=== PATIENT | male | born 1960 | race Caucasian/White ===

== ENCOUNTER → 2018-12-20 | Outpatient (CLI) | payer OTHER ==
--- NOTE | 2018-12-20 12:46 | KCIC ---
EXAM: Lumbar spine, 3 views. HISTORY: Pain. COMPARISON: None. FINDINGS: 3 views of the lumbar spine are obtained. There is grade 1 anterolisthesis of L5 on S1. There is minimal retrolisthesis of L3 on L4. There is degenerative endplate remodeling at all levels. There is facet arthropathy predominantly at L4-L5 and L5-S1. IMPRESSION: 1. Multilevel degenerative change, primarily at the lower lumbar levels. 2. Grade 1 anterolisthesis of L5 on S1. Electronically signed by: Faith Matos MD (12/20/2018 12:43 PM) [place] [id number]
== END | disposition home or self-care (01) ==
LOC: KCIC 09:07
PROVIDERS: ATTEND Family Medicine
DX: M47.816 Spondylosis without myelopathy or radiculopathy, lumbar region (principal); M43.17 Spondylolisthesis, lumbosacral region; M12.88 Other specific arthropathies, not elsewhere classified, other specified site
CPT/HCPCS: 72100

== ENCOUNTER → 2019-01-02 | Outpatient (CLI) | payer OTHER ==
--- NOTE | 2019-01-02 09:05 | KCIC ---
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 Findings: 2 views of the orbits are submitted. No metallic foreign body is identified in the region of orbits. Impression: 1. No metallic foreign body is identified in the region of orbits. Electronically signed by: Jd Elkins MD (01/02/2019 9:02 AM) [email or web address]
--- NOTE | 2019-01-02 10:02 | KCIC ---
MRI Lumbar Spine without contrast History: Lumbar radiculopathy, felt a pop while bending over 2 weeks ago, low back pain Technique: Multiplanar, multi sequential noncontrast MR imaging was performed of the lumbar spine. Comparison: None Findings: Lumbar vertebral body stature is overall preserved. There is superior right S1 endplate deformity likely old as not associated with focal marrow edema. There are small hemangiomas of L2 and L3, also likely at T12. There is very minimal grade 1 anterior spondylolisthesis L5-S1. 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 There is negligible posterior subluxation L3 relative to L4 and L1 relative to L2. There is amorphous edema of the right L5 pedicle extending to the facet articular processes also extending to the posterior aspect of S1. There is also minimal amorphous edema of the left L5-S1 facet articulation. Conus terminates at L1. There is mild degenerative disc disease L3-4 and L4-5, mild disc desiccation L1-2. L1-L2: There is negligible disc osteophyte complex. Spinal canal and neural foramina are adequate. L2-L3: There is mild prominence of posterior epidural fat, mild buckling of the ligamentum flavum, mild facet hypertrophic change. There is negligible disc osteophyte complex indenting the ventral thecal sac in the far left lateral recess without significant spinal stenosis. Neural foramina are overall adequate. L3-L4: There are posterior and anterior annular tears. There is negligible disc osteophyte complex. There is mild prominence of posterior epidural fat centrally and mild facet degenerative change and buckling of the ligament flavum. There is minimal attenuation of the thecal sac primarily from posteriorly by epidural lipomatosis. Neural foramina are overall adequate. L4-L5: There is mild facet hypertrophic change and buckling of the ligamentum flavum. There is minimal disc osteophyte complex. There is [id number] narrowing of the far left lateral recess with degree of contact of the descending left L5 nerve root, narrowing primarily from posteriorly by ligamentum flavum and facet. There is mild to moderate left and mild right neural foramina compromise by disc osteophyte complex and facet hypertrophic change. L5-S1: There is moderate to severe facet degenerative change bilaterally. There is mild prominence of epidural fat in the recesses bilaterally, preserved central subarachnoid space, no displacement of the descending S1 nerve roots. There is [id number] neural foramina compromise bilaterally due to spondylolisthesis in combination with facet degenerative change. Impression: 1. There is minimal grade 1 anterior spondylolisthesis at L5-S1 at which there is facet degenerative change, also suspected right L5 spondylolysis. There is nonspecific edema of the right L5 pedicle extending to the facet articular processes and also mild amorphous edema of the left L5-S1 facet articulation which may be reactive in etiology. 2. There is mild degenerative disc disease greatest L3-4 and L4-5. 3. There is mild to moderate narrowing of the left lateral recess at L4-5 with degree of contact of the descending left L5 nerve root. 4. There is mild to moderate neural foramina compromise bilaterally at L5-S1 and on the left at L4-5. Electronically signed by: Jd Elkins MD (01/02/2019 9:59 AM) [email or web address]
== END | disposition home or self-care (01) ==
LOC: KCIC MRI 08:37
PROVIDERS: ATTEND Family Medicine
DX: Z01.00 Encounter for examination of eyes and vision without abnormal findings (principal); M51.16 Intervertebral disc disorders with radiculopathy, lumbar region; M47.26 Other spondylosis with radiculopathy, lumbar region; M47.817 Spondylosis without myelopathy or radiculopathy, lumbosacral region; M48.061 Spinal stenosis, lumbar region without neurogenic claudication; M43.17 Spondylolisthesis, lumbosacral region; D18.09 Hemangioma of other sites; M25.78 Osteophyte, vertebrae; M89.38 Hypertrophy of bone, other site
CPT/HCPCS: 70030; 72148

== ENCOUNTER → 2019-02-12 | Outpatient (CLI) | payer OTHER ==
[~2019-02-12] MED LIST: IOHEXOL 180 MG/ML 10 ML VIAL. IT ONE; LIDOCAINE WITH 8.4% SOD BICARB 3 ML DISP.SYRIN. INJ ONE
[2019-02-12 10:40] VITALS: BP 104/56
[2019-02-12 11:35] VITALS: BP 110/68
--- NOTE | 2019-02-12 11:36 | RAD ---
Lumbar myelogram, 02/12/2019: HISTORY: Back and leg pain Under local anesthesia, aseptic conditions and fluoroscopic guidance a lumbar puncture was performed at the mid L2 level utilizing a 25-gauge Kassie spinal needle. Good clear CSF flow was obtained following which 12 cc of Omnipaque 180 was injected into the thecal sac. The spinal needle was then removed and hemostasis obtained. Appropriate digital imaging of the lumbar region was then performed. 16 fluoroscopic spot images were recorded. 2 minutes of fluoroscopy time was utilized. The patient tolerated the procedure well and was sent to CT in good condition. The following findings were delineated on the myelogram: 1. There are mild anterior extradural defects throughout the lumbar spine. There is generalized narrowing of the thecal sac throughout the mid and lower lumbar spine. 2. In the upright position there is slight anterolisthesis at L5-S1 which does not change appreciably with flexion and extension. 3. There is poor opacification of the nerve root sleeves bilaterally in the lower lumbar spine, particularly on the right at L4 and bilaterally at L5 and S1. CT of the lumbar spine-post myelogram, 02/12/2019: Multidetector CT imaging was performed with multiplanar reconstructions produced. Following findings are delineated: 1. There is slight posterior annular bulging at L1-2 and L2-3. At L2-3 the thecal sac measures 9-10 mm in AP diameter. The neural foramina are well maintained. 2. At L3-4 there are mild degenerative changes involving the facet joints with posterior ligamentous thickening. There is moderate posterior disc bulging. The thecal sac measures 7-8 mm in AP diameter at the midline. There is only mild inferior foraminal narrowing. 3. At L4-5 there are more extensive degenerative changes involving the facet joints with moderate posterior ligamentous thickening. There is moderate posterior disc bulging. The thecal sac narrows down to an AP diameter of approximately 7 mm at the midline. The facet spurring is causing moderate bilateral foraminal narrowing. 4. At L5-S1 there are severe degenerative changes involving the facet joints with vacuum phenomena bilaterally. There is approximately 3 mm of anterolisthesis at L5-S1 in the supine position. There is a vacuum disc phenomena with moderate posterior disc bulging. There is moderate central spinal stenosis in a triangular configuration at this level, as well as moderate bilateral foraminal narrowing. IMPRESSION: 1. Moderate multilevel degenerative change as described above. 2. Mild anterolisthesis at L5-S1 due to extensive facet joint arthropathy resulting in moderate central spinal and bilateral foraminal stenosis. 3. Moderate central spinal stenosis and bilateral foraminal narrowing at L4-5 due to a combination of facet joint arthropathy and moderate posterior disc bulging. PQRS Compliance Statement: One or more of the following individualized dose reduction techniques were utilized for this examination: 1. Automated exposure control 2. Adjustment of the mA and/or kV according to patient size 3. Use of iterative reconstruction technique
--- NOTE | 2019-02-12 11:39 | NUR ---
Patient came in outpatient for myelogram. Vitals stable, no signs or symptoms of distress. Patient and educated on post myelogram care and medications to hold; both and patient verbalized understanding. Patient ambulated out of facility with and niece at side without issues.
== END | disposition home or self-care (01) ==
LOC: RAD 08:52
PROVIDERS: ATTEND Neurological Surgery
DX: M48.07 Spinal stenosis, lumbosacral region (principal); M47.817 Spondylosis without myelopathy or radiculopathy, lumbosacral region; M12.88 Other specific arthropathies, not elsewhere classified, other specified site; M51.87 Other intervertebral disc disorders, lumbosacral region; M43.16 Spondylolisthesis, lumbar region; I10 Essential (primary) hypertension; F17.200 Nicotine dependence, unspecified, uncomplicated; Z79.01 Long term (current) use of anticoagulants; Z86.73 Personal history of transient ischemic attack (TIA), and cerebral infarction without residual deficits
CPT/HCPCS: 72132; 72265; Q9965

== ENCOUNTER → 2019-03-31 | Outpatient (CLI) | payer OTHER ==
[2019-02-12 11:35] VITALS: BP 110/68
[~2019-03-31] MED LIST changes: +ASPI81TA50 PO; +CRESTOR20 MG PO; +CYCL10TA2 PO; +GLIP5TAB10 PO; -IOHEXOL 180 MG/ML 10 ML VIAL. IT ONE; -LIDOCAINE WITH 8.4% SOD BICARB 3 ML DISP.SYRIN. INJ ONE; +LISI-334 PO; +METO25TA4 PO; +NITR0.4T22 SL
--- NOTE | 2019-04-01 04:13 | PAIN ---
DATE OF SERVICE: 03/31/2019 INITIAL CONSULTATION FOR PAIN CLINIC CHIEF COMPLAINT: Bilateral low back pain. HISTORY OF PRESENT ILLNESS: This is a 59-year-old male who presents with history of pain in the low back bilaterally, somewhat worse on the right than the left, but present in both sides of the low back, going on since about 11/2018. The patient reports he was working. 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 The patient reports now it is constant, sharp, stabbing, throbbing, shooting, radiating into the side of the back and into the hip at times, but generally in the low back itself, more on the right than the left. The patient reports it is aching and burning. No radiation to the lower extremities. The patient reports it awakens him from sleep at least once or twice a night. It can affect his ability to walk, but he is not using any assistive devices. The patient has been on light duty and off work for several months now with no real resolution in the pain and he has tried some stretching and strengthening exercises, therapies in the past, nothing has been decreasing the pain significantly. The patient has had some chiropractic treatment as well, but this has not helped as well either. The patient has tried some cyclobenzaprine which helps mildly, but makes him more sleepy than anything. The patient reports no loss of motor function, but significant pain with standing, walking, changing positions especially standing or bending, ____ vacuuming the floor, when bending at the waist with any activities and awakens him from sleep at least once or twice at night as noted. The patient rates his disability from 0-10, 10 being worst, is at 7 with family home responsibilities, social activity, occupation and sexual behavior, 6 with self-care and life support activities and recreational activities. PAST MEDICAL HISTORY: Significant for hypertension, type 2 diabetes, dizziness, seizures, strokes, arthritis, balance issues. PAST SURGICAL HISTORY: Previous surgery includes left ear surgery, ear tubes, right total knee replacement in 2013, and previous tonsillectomy as well. CURRENT MEDICATIONS: Include daily baby aspirin, lisinopril, metoprolol, nitroglycerin, cyclobenzaprine, rosuvastatin, and ____ 5 mg daily. ALLERGIES: The patient has no known drug allergies. FAMILY HISTORY: Significant for heart disease. SOCIAL HISTORY: The patient does not drink alcohol. Does not use any illegal, illicit, or recreational drugs. Does smoke about half pack a day, has for many years. 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 REVIEW OF SYSTEMS: The patient's review of systems is positive for those items mentioned in history of present illness. All systems reviewed and otherwise negative. It is complete, full and well documented on the patient's chart. PHYSICAL EXAMINATION: VITAL SIGNS: The patient's blood pressure 124/86, pulse 64, respirations 16, temperature is 98.9 degrees Fahrenheit. Height is 5 feet 10 inches. Weight is 255 pounds. GENERAL: The patient is awake, alert, oriented, appropriate, very pleasant demeanor. HEENT: Shows normocephalic, atraumatic. Extraocular movements are intact, symmetrical. Oral cavity, mucous membranes moist and pink. Dentition is intact. NECK: Shows anterior throat supple without palpable lymphadenopathy noted. Swallow reflex symmetrical. CHEST: Shows normal on inspection. Breath sounds clear to auscultation bilaterally. HEART: Shows S1, S2 clear. No murmurs auscultated. ABDOMEN: Soft, nontender, and nondistended. No palpable organomegaly is noted. No rebound or guarding demonstrated. BACK: Shows spine grossly in the midline. Slight exaggeration of thoracic kyphosis, some minor flattening of the lumbar lordotic curvature. Lumbar paraspinous muscle shows symmetrical on inspection with palpation shows some moderate tenderness diffusely bilaterally, but only diffusely without radiation. The patient has good rotational motion of the lumbar spine with some moderate tenderness with both right and left lateral rotation and worse on the right, but present bilaterally and significant pain with axial loading and extension of the lumbar spine with pain in the low back itself without radiation. This is worse on the right than the left, but present bilaterally. This is mildly present with forward flexion at 45 degrees, which he performs fully, but also mildly present with forward flexion. EXTREMITIES: The patient's lower extremities show deep tendon reflexes at 1+ in the patellar and tendo calcaneus tendons. Motor exam is strong with 5/5 dorsiflexion, extension, quadriceps and hamstring flexion equal. Peripheral pulses are 1+ posterior tibia. No peripheral edema is noted bilaterally. The patient's straight leg raise noted to be negative for reproduction of any radicular symptoms bilaterally. Gaenslen's and Bertrand's maneuvers are negative bilaterally as well. Peripheral pulses are 1+ posterior tibia. No peripheral edema is noted bilaterally. SKIN: The patient's skin shows warm and dry, good turgor. No edema, sores, rashes or bruising throughout. NEUROLOGIC: The patient is able to stand, stand on his toes without difficulty or loss of balance, walks with a normal appearing gait for short distance in the office today, not using any assistive devices such as canes or crutches to ambulate. DIAGNOSTIC STUDIES: The patient's diagnostic information, had lumbar myelogram performed 02/12/2019, showing moderate multilevel degenerative change with mild anterolisthesis L5-S1 due to extensive facet joint arthropathy, resulting in moderate central spinal and bilateral foraminal stenosis, moderate central spinal stenosis and bilateral foraminal narrowing at L4-L5 due to combination of facet joint arthropathy and moderate posterior disk bulging. IMPRESSION: 1. This is a 59-year-old male with several-month history of pain in the low back after an injury while working. 2. Lumbar myelogram as noted. 3. Hypertension. 4. Diabetes. 5. Obesity. 6. Arthritis. PLAN: Options were discussed with the patient including conservative medical managements, physical therapies, and interventional techniques and he would like to pursue interventional techniques. We discussed bilateral L4-L5 and L5-S1 facet joint injections, as the patient has significant pain with axial loading of the lumbar spine consistent with facetogenic pain. He would like to proceed with this. We discussed this with anatomical models and risks were discussed as well. The patient awaits for preauthorization with insurance provider. In the meantime, we will continue with therapy and stretching exercises. He is doing on his own. We will try Medrol Dosepak. The patient was given instruction, as well as side effects to be aware of with the medication and will follow up in approximately 1 week, plan on bilateral L4-L5 and L5-S1 facet joint injections at that time. LINO CHAU MD DR: CAREMN/ledy JOB#: [id number] / [id number] ELIO Raza MD
== END | disposition home or self-care (01) ==
LOC: PNCL 08:34
PROVIDERS: ATTEND Anesthesiology
DX: M48.061 Spinal stenosis, lumbar region without neurogenic claudication (principal); M96.1 Postlaminectomy syndrome, not elsewhere classified; I10 Essential (primary) hypertension; E11.9 Type 2 diabetes mellitus without complications; E66.9 Obesity, unspecified; M19.90 Unspecified osteoarthritis, unspecified site; Z90.89 Acquired absence of other organs; Z96.651 Presence of right artificial knee joint; Z79.82 Long term (current) use of aspirin; Z79.891 Long term (current) use of opiate analgesic; Z79.899 Other long term (current) drug therapy; Z86.73 Personal history of transient ischemic attack (TIA), and cerebral infarction without residual deficits
CPT/HCPCS: G0463

== ENCOUNTER → 2019-04-17 | Outpatient (CLI) | payer OTHER ==
[2019-02-12 11:35] VITALS: BP 110/68
[~2019-04-17] MED LIST changes: +BUPIVACAINE MPF 0.25% 10 ML VIAL. ONE; +IOHEXOL 180 MG/ML 10 ML VIAL. ONE; +methylPREDNISolone ACETATE 40 MG/ML VIAL. ONE; +methylPREDNISolone ACETATE 80 MG/ML VIAL. ONE
--- NOTE | 2019-04-17 12:40 | PAIN ---
DATE OF SERVICE: 04/17/2019 PROGRESS NOTE FOR PAIN CLINIC DIAGNOSIS: Lumbar spinal stenosis with lumbar and lumbosacral spondylosis. HISTORY OF PRESENT ILLNESS: The patient is a 59-year-old male who returns for followup status post initial evaluation and preauthorization for bilateral lumbar facet joint injections. The patient has obtained this now and would like to proceed. The patient reports still significant pain in the low back, slightly worse on the right than the left, but present bilaterally. The patient reports the pain is 8 on a scale of 10 at its worst in the past week, 3 on average, 3 at its least and is a 3 today. The patient reports it is aching, sharp, dull, tight, shooting, stabbing, cramping, burning, tingling, radiating, becoming constant, severe across the low back, again worse on the right side, worse with walking, standing, changing positions, better with sitting or lying down, does not awaken him from sleep at night. Reports he cannot walk more than about 2-3 minutes without the pain, aching and hurting and has to sit down. The patient reports no new motor or sensory deficits, no new bowel or bladder incontinence or other complaints. PHYSICAL EXAMINATION: VITAL SIGNS: The patient's blood pressure 133/83, pulse 75, respirations 18, temperature 98.8 degrees Fahrenheit, height is 5 feet 10 inches, weight is 251 pounds. GENERAL: The patient is awake, alert, oriented, appropriate, very pleasant demeanor. HEENT: Shows normocephalic, atraumatic. Extraocular movements are intact and symmetrical. Oral cavity: Mucous membranes moist and pink. Dentition is intact. NECK: Shows anterior throat supple without palpable lymphadenopathy noted. Swallow reflex symmetrical. CHEST: Shows normal on inspection. Breath sounds clear bilaterally. HEART: Shows S1, S2 clear. ABDOMEN: Obese, soft, nontender, nondistended. BACK: Shows spine grossly in the midline. Normal appearing thoracic kyphosis, some minor flattening of lumbar lordotic curvature. Lumbar paraspinous muscle shows symmetrical on inspection. On palpation shows some moderate tenderness diffusely bilaterally, but only diffusely without radiation. The patient has good rotational motion of lumbar spine, both laterally as well as extension and flexion without significant difficulty, but with increased pain with extension and axial loading of the lumbar spine, again worse on the right side than the left. The patient reports no new motor or sensory deficits, no new bowel or bladder incontinence. EXTREMITIES: The patient's lower extremities show deep tendon reflexes at 1+/4 in the patellar and tendo calcaneus tendons. Motor exam is strong with 5/5 dorsiflexion, extension, quadriceps and hamstring flexion equal bilaterally. Peripheral pulses are 1+ posterior tibia. No peripheral edema is noted in the lower extremities bilaterally. Options were discussed with the patient. The patient's old chart was reviewed as his current medication regimen updated. Current review of systems updated today as well. We will proceed with bilateral L4-L5 and L5-S1 facet joint injections today with fluoroscopic guidance. Risks were again discussed including, but not limited to bleeding, infection, possibility of epidural hematoma, subsequent neurological compromise, dural puncture, headaches, spinal cord and/or nerve damage, side effects of steroid medication and poor results regarding pain control. The patient understands and wished to proceed. The patient will return to clinic in approximately 2 weeks for followup. He was counseled on return appointment, activity level and side effects to be aware of. DIAGNOSES: Lumbar spinal stenosis, lumbar and lumbosacral spondylosis. PROCEDURE: Lumbar L4-L5 and L5-S1 facet joint injections bilaterally under fluoroscopic guidance using C-arm under sterile prep and drape using local anesthetic. MEDICATION INJECTED: The patient received a total of 120 mg Depo-Medrol plus total of 4 mL of 0.25% bupivacaine and total of 2 mL of contrast. CONDITION AT DISCHARGE: Stable. The patient tolerated procedure well, had no complications. LINO CHAU MD DR: CARMEN/ledy JOB#: [id number] / [id number]
== END ==
LOC: PNCL 07:56
PROVIDERS: ATTEND Anesthesiology
DX: M47.817 Spondylosis without myelopathy or radiculopathy, lumbosacral region (principal); M48.061 Spinal stenosis, lumbar region without neurogenic claudication
CPT/HCPCS: 64493; 64494; J1030; J1040; J3490; Q9965

== ENCOUNTER → 2019-05-01 | Outpatient (CLI) | payer OTHER ==
[2019-02-12 11:35] VITALS: BP 110/68
[~2019-05-01] MED LIST changes: -BUPIVACAINE MPF 0.25% 10 ML VIAL. ONE; -IOHEXOL 180 MG/ML 10 ML VIAL. ONE; -methylPREDNISolone ACETATE 40 MG/ML VIAL. ONE; -methylPREDNISolone ACETATE 80 MG/ML VIAL. ONE
--- NOTE | 2019-05-01 20:20 | PAIN ---
DATE OF SERVICE: 05/01/2019 PROGRESS NOTE FOR PAIN CLINIC DIAGNOSIS: Lumbar and lumbosacral spondylosis with lumbar spinal stenosis. HISTORY OF PRESENT ILLNESS: The patient is a 59-year-old male who returns for followup status post bilateral L4-L5 and L5-S1 facet joint injections. The patient returns reporting about 50% improvement overall with about 80-90% improvement for the first 4 or 5 days, but the pain level has increased. Effect is now decreased in the low back. The patient reports he is able to move much more easily, sleeping better at night, has been increasing his activity with greater distance walking, doing work activities, household activities, sleeping much better. The patient reports it still awakens him from sleep, but only about every 7-8 hours and he is able to move his body in and out of bed, which was a very big problem initially, now is resolved and he is doing much better. The patient reports that the pain is returning now. Over the past week it has been 8-9 on a scale of 10 at its worst, 3 on average and 3 at the least when he is not doing any activities and when he is sitting still. The patient reports with walking, standing, changing positions, especially extension of the lumbar spine and axial loading of the low back pain, significant pain is still present. The patient reports no new motor or sensory deficits, no new bowel or bladder incontinence. PHYSICAL EXAMINATION: VITAL SIGNS: The patient's blood pressure 112/72, pulse 78, respirations 16, temperature 98.0 degrees Fahrenheit, weight is 242 pounds. GENERAL: The patient is awake, alert, oriented, appropriate, very pleasant demeanor. HEENT: Head is normocephalic, atraumatic. Extraocular movements are intact and symmetrical. Oral cavity: Mucous membranes moist and pink. Dentition is intact. NECK: Shows anterior throat supple without palpable lymphadenopathy noted. Swallow reflex symmetrical. CHEST: Shows normal on inspection. Breath sounds are clear to auscultation bilaterally. HEART: Shows S1, S2 clear. No murmurs auscultated. ABDOMEN: Soft, nontender, nondistended. No palpable organomegaly is noted. No rebound or guarding demonstrated. BACK: Shows spine grossly in the midline. Normal appearing thoracic kyphosis and minor flattening of lumbar lordotic curvature. Lumbar paraspinous muscle shows symmetrical on inspection, on palpation shows some moderate tenderness diffusely bilaterally, but only diffusely without radiation. The patient has good rotational motion, but with some moderate tenderness with right and left lateral rotation greater than 10 degrees as well as with significant tenderness, again noted with extension greater than 10 degrees, but better with forward flexion at 45 degrees. EXTREMITIES: The patient's lower extremities show deep tendon reflexes at 1+ in the patellar and tendo calcaneus tendons. Motor exam is strong with 5/5 dorsiflexion, extension, quadriceps and hamstring flexion and symmetrical. Peripheral pulses are 1+ posterior tibia. No peripheral edema is noted. Options were discussed with the patient. The patient's old chart was reviewed as his current medication regimen updated. Current review of systems updated today as well. We will preauthorize the patient for a repeat L4-L5 and L5-S1 facet joint injections. He did quite well after the first injection, but the pain is now returning. We discussed possibility of radiofrequency ablation in the future if we can reproduce diagnostic results again, the patient is interested in this as well. At this time we will schedule for second facet joint injections and go from there at that time. The patient will continue with walking, stretching, strengthening exercises as tolerated in the meantime. LINO CHAU MD DR: CARMEN/ledy JOB#: [id number] / [id number]
== END | disposition home or self-care (01) ==
LOC: PNCL 08:22
PROVIDERS: ATTEND Anesthesiology
DX: M47.817 Spondylosis without myelopathy or radiculopathy, lumbosacral region (principal); M48.061 Spinal stenosis, lumbar region without neurogenic claudication; M40.294 Other kyphosis, thoracic region
CPT/HCPCS: G0463

== ENCOUNTER → 2019-05-15 | Outpatient (CLI) | payer OTHER ==
[2019-02-12 11:35] VITALS: BP 110/68
[~2019-05-15] MED LIST changes: +BUPIVACAINE MPF 0.25% 10 ML VIAL. ONE; +IOHEXOL 180 MG/ML 10 ML VIAL. ONE; +methylPREDNISolone ACETATE 40 MG/ML VIAL. ONE; +methylPREDNISolone ACETATE 80 MG/ML VIAL. ONE
--- NOTE | 2019-05-15 09:36 | PAIN ---
DATE OF SERVICE: 05/15/2019 PROGRESS NOTE FOR PAIN CLINIC DIAGNOSES: Lumbar and lumbosacral spondylosis. HISTORY OF PRESENT ILLNESS: The patient is a 59-year-old male who returns for followup status post bilateral L4-L5 and L5-S1 facet joint injections. The patient did very well initially about 50% improvement overall. The pain returned in the low back bilaterally, more on the right than the left, but present bilaterally, worse with walking, standing, changing positions and extension of the lumbar spine, especially with standing. The patient reports it is a 9 on a scale of 10 at its worst, 6-7 on an average and a 5 at its least and is a 7 today. The patient reports no new motor or sensory deficits, no new bowel or bladder incontinence, better with sitting or lying down, does not awaken him from sleep at night. PHYSICAL EXAMINATION: VITAL SIGNS: The patient's blood pressure 125/80, pulse 93, respirations 18, temperature 98.3 degrees Fahrenheit, height is 5 feet 10 inches, weight is 238 pounds. GENERAL: The patient is awake, alert, oriented, appropriate, very pleasant demeanor. HEENT: Shows normocephalic, atraumatic. Extraocular movements are intact and symmetrical. Oral cavity: Mucous membranes moist and pink. Dentition is intact. NECK: Shows anterior throat supple without palpable lymphadenopathy noted. Swallow reflex symmetrical. CHEST: Shows normal on inspection. Breath sounds clear to auscultation bilaterally. HEART: Shows S1, S2 clear. No murmurs auscultated. ABDOMEN: Soft, nontender, nondistended. BACK: Shows spine grossly in the midline. Normal appearing thoracic kyphosis, some minor flattening of lumbar lordotic curvature. Lumbar paraspinous muscle shows symmetrical on inspection, with palpation shows some moderate tenderness, but only in the middle and lower distribution of paraspinous muscles without radiation. The patient has good rotational motion with some moderate tenderness both laterally with rotation greater than 10 degrees right and left as well as extension greater than 10 degrees, forward flexion at 45 degrees more comfortable significant pain with extension greater than 10 degrees. The patient reports the pain is aching, sharp, tight, dull, shooting, burning, stabbing, radiating, constant, severe, unbearable at times. EXTREMITIES: Lower extremities show deep tendon reflexes at 1+ in the patellar and tendo calcaneus tendons. Motor exam is 5/5 with dorsiflexion, extension, quadriceps and hamstring flexion symmetrical. Peripheral pulses are 1+ posterior tibia. No peripheral edema is noted bilaterally. Options were discussed with the patient. The patient's old chart was reviewed as his current medication regimen updated. Current review of systems updated today as well and we will proceed with a bilateral L4-L5 and L5-S1 facet joint injections today with fluoroscopic guidance. Risks were again discussed including, but not limited to bleeding, infection, possibility of epidural hematoma, subsequent neurological compromise, dural puncture, headaches, spinal cord and/or nerve damage, side effects of steroid medication and poor results regarding pain control. The patient understands and wished to proceed. The patient will return to clinic in approximately 2 weeks for followup. He was counseled on return appointment, activity level and side effects to be aware of. DIAGNOSES: Lumbar and lumbosacral spondylosis. PROCEDURE: Bilateral L4-L5 and L5-S1 facet joint injections using C-arm fluoroscopic guidance under sterile prep and drape using local anesthetic. MEDICATION INJECTED: A total of 120 mg of Depo-Medrol plus 4 mL of 0.25% bupivacaine and 2 mL of contrast. CONDITION AT DISCHARGE: Stable. The patient tolerated the procedure well, had no complications. LINO CHAU MD DR: CARMEN/ledy JOB#: [id number] / [id number]
== END ==
LOC: PNCL 08:51
PROVIDERS: ATTEND Anesthesiology
DX: M47.817 Spondylosis without myelopathy or radiculopathy, lumbosacral region (principal)
CPT/HCPCS: 64493; 64494; J1030; J1040; J3490; Q9965

== ENCOUNTER → 2019-05-29 | Outpatient (CLI) | payer OTHER ==
[2019-02-12 11:35] VITALS: BP 110/68
[~2019-05-29] MED LIST changes: -BUPIVACAINE MPF 0.25% 10 ML VIAL. ONE; -IOHEXOL 180 MG/ML 10 ML VIAL. ONE; -methylPREDNISolone ACETATE 40 MG/ML VIAL. ONE; -methylPREDNISolone ACETATE 80 MG/ML VIAL. ONE
--- NOTE | 2019-05-29 11:41 | PAIN ---
DATE OF SERVICE: 05/29/2019 PROGRESS NOTE FOR PAIN CLINIC DIAGNOSES: Lumbar spinal stenosis and lumbosacral spondylosis. HISTORY OF PRESENT ILLNESS: The patient is a 59-year-old male who returns for followup status post bilateral L4-L5 and L5-S1 facet joint injections x 2. The patient reports very minimal decrease in pain if any at all. The patient reports the pain is actually getting worse in the low back bilaterally, somewhat worse on the right side with some radiation and into the right lower extremity. The patient reports it is posterior in the thigh as well as in the calf. It is a 9 on a scale of 10 at its worst, 3-4 on average and a 3 at its least and is a 5 today. The patient reports it has been waking him from sleep. He only sleeps a few hours at a time, increased with walking, standing, changing positions. He reports that the injections have not been significantly helpful for more than a day or two at the most and that was only after the second set. No significant decrease in pain. The patient reports he is unable to stand for more than just a few minutes, as the pain becomes overwhelming and he has to sit down, most of the time to try and decrease the pain. The patient reports no new motor or sensory deficits, no bowel or bladder incontinence. PHYSICAL EXAMINATION: VITAL SIGNS: The patient's blood pressure is 152/100, pulse 90, respirations 16, temperature 98.4 degrees Fahrenheit, height is 5 feet 10 inches, weight is 244 pounds. GENERAL: The patient is awake, alert, oriented, appropriate, very pleasant demeanor. HEENT: Shows normocephalic, atraumatic. Extraocular movements are intact and symmetrical. Oral cavity: Mucous membranes moist and pink. Dentition is intact. NECK: Shows anterior throat supple without palpable lymphadenopathy noted. Swallow reflex symmetrical. CHEST: Shows normal on inspection. Breath sounds clear to auscultation bilaterally. HEART: Shows S1, S2 clear. ABDOMEN: Soft, nontender, nondistended. No palpable organomegaly is noted. No rebound or guarding demonstrated. BACK: Shows spine grossly in the midline. Normal appearing thoracic kyphosis and minor flattening of lumbar lordotic curvature. Lumbar paraspinous muscle shows symmetrical on inspection, with palpation shows some moderate tenderness diffusely bilaterally without radiation, but moderately tender bilaterally. The patient has good rotational motion with some tenderness still with extension of the lumbar spine with forward flexion, right and left lateral rotation mildly tender, but only diffusely bilaterally. EXTREMITIES: Lower extremities show deep tendon reflexes 1+ in the patellar and tendo calcaneus tendons. Motor exam remains strong with 5/5 dorsiflexion and extension and equal. Peripheral pulses are 1+ posterior tibia. No peripheral edema is noted bilaterally. PLAN: Options were discussed with the patient. The patient's old chart was reviewed as his current medication regimen updated. Current review of systems updated today as well. We will refer back to his neurosurgeon as he was recommending a 2-level laminectomy if not significantly improved after injections. The patient would like to follow up with his neurosurgeon. We will make those arrangements. The patient was counseled as to maintain his blood pressure medications as he reports did not take it this morning and his blood pressure was high especially on the diastolic reading. The patient reports he will return home and take that and stay on it as well. Will follow up with Neurosurgery next available to discuss further possible surgical options. LINO CHAU MD DR: CARMEN/ledy JOB#: [id number] / [id number]
== END | disposition home or self-care (01) ==
LOC: PNCL 09:59
PROVIDERS: ATTEND Anesthesiology
DX: M48.061 Spinal stenosis, lumbar region without neurogenic claudication (principal); M47.817 Spondylosis without myelopathy or radiculopathy, lumbosacral region
CPT/HCPCS: G0463

== ENCOUNTER → 2019-07-14 | Outpatient (CLI) | payer OTHER ==
[2019-02-12 11:35] VITALS: BP 110/68
[~2019-07-14] MED LIST changes: +DOCU-153 PO; +OXYC-325 PO
[2019-07-14 15:43] LABS: BASO # 0.1 x10^3/uL (0.0-0.2); BASO % 1 % (0-3); EOS # 0.2 x10^3/uL (0.0-0.7); EOS % 3 % (0-3); HEMOGLOBIN 14.1 g/dL (13.0-17.5); LYMPH # 3.1 x10^3/uL (1.0-4.8); LYMPH % 32 % (24-48); MEAN CORPUSCULAR HEMOGLOBIN 30 pg (25-35); MEAN CORPUSCULAR HGB CONC 33 g/dL (31-37); MEAN CORPUSCULAR VOLUME 92 fL (79-100); MONO # 0.6 x10^3/uL (0.0-1.1); MONO % 7 % (0-9); NEUT # 5.6 x10^3/uL (1.8-7.7); NEUT % 58 % (31-73); PLATELET COUNT 269 x10^3/uL (140-400); RED CELL DISTRIBUTION WIDTH 14.2 % (11.5-14.5); WHITE BLOOD COUNT 9.7 x10^3/uL (4.0-11.0)
[2019-07-14 16:05] LABS: ALBUMIN 3.6 g/dL (3.4-5.0); CALCIUM 9.2 mg/dL (8.5-10.1); GFR 76.5; POTASSIUM 4.3 mmol/L (3.5-5.1); TOTAL BILIRUBIN 0.3 mg/dL (0.2-1.0); TOTAL PROTEIN 7.2 g/dL (6.4-8.2)
[2019-07-15 03:08] LABS: HEMOGLOBIN A1C 6.2 % (4.8-5.6)
== END | disposition home or self-care (01) ==
LOC: SURGPAT 13:24
PROVIDERS: ATTEND Neurological Surgery
DX: Z01.818 Encounter for other preprocedural examination (principal); M48.062 Spinal stenosis, lumbar region with neurogenic claudication; M54.16 Radiculopathy, lumbar region
CPT/HCPCS: 36415; 80053; 83036; 85025; 87641

== ENCOUNTER 2019-07-21 07:04 | Observation (INO) | payer OTHER ==
--- NOTE | 2019-07-16 15:26 | HP ---
ADMIT DATE: 07/21/2019. DATE OF SURGERY: 07/21/2019. HISTORY OF PRESENT ILLNESS: The patient is a pleasant 59-year-old who has problems with his low back, right greater than left and his buttock as well as posterior thigh. He has no numbness or weakness. The problem is primarily pain. The problem started in 01/2019. Currently, his pain is rated at a 4/10. Any activity increases his pain. He has had epidural steroid injections x 2 without significant benefit. PAST MEDICAL HISTORY: Right artificial knee, OH, hypertension, kidney problems, stroke, swelling of limbs. PAST SURGICAL HISTORY: Stroke in 2004, knee replacement in 2016, OH in 2017. FAMILY HISTORY: Cancer, diabetes, heart problems and disease and OH. 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 . Exercises daily. Denies substance abuse. Smokes 1 pack per day. Drinks alcohol 1-2 times per year. Drinks soda daily. ALLERGIES: No known drug allergies. CURRENT MEDICATIONS: Lisinopril, aspirin, metoprolol, nitroglycerin, rosuvastatin. REVIEW OF SYSTEMS: A 12-point review of systems was obtained and is noncontributory except for that mentioned above. PHYSICAL EXAMINATION: NEUROSURGERY EXAMINATION: GENERAL APPEARANCE: Alert, pleasant, in no acute distress. HEAD: Normocephalic and atraumatic. SKIN: Warm and dry. MUSCULOSKELETAL: Lumbar paraspinal muscle bulk is normal, restricted range of motion of the lumbar spine, [id number] tenderness of the lower lumbar spine on palpation, normal range of motion of the lower extremities bilaterally. EXTREMITIES: No clubbing, cyanosis or edema. NEUROLOGIC: Alert and oriented x 3, normal recent and remote memory, strength 5/5 in bilateral lower extremities, sensory was intact to light touch in bilateral lower extremities except for decrease in the posterior leg and plantar surface of the right foot to light touch. Reflexes were trace and symmetric in bilateral lower extremities, negative straight leg raising bilaterally, forward stooped gait. IMAGING: I reviewed his lumbar myelogram. On that study, there is stenosis present at L4-L5 and L5-S1, which is especially marked in the subarticular region, lateral recesses. ASSESSMENT/PLAN: I believe there is moderate canal stenosis at L4-L5 and L5-S1. Combined with this there is lateral recess and foraminal narrowing at both of these levels that are responsible for his pain. I spoke with him about microdecompressive surgery at both of these levels. I discussed this with him in detail. He would like to go ahead. I outlined the surgery and the risks and expected postoperative course. I explained the chance that this would help him and the possibility that it would not. He understands. He would like to go ahead. We will make the arrangements. KAYLA LIZAMA MD DR: FRANKO/ledy JOB#: [id number] / [id number] DARRYL
[~2019-07-21] VITALS: Ht 177.8 cm; Wt 99.8 kg
[~2019-07-21 07:04] MED LIST changes: +BUPIVACAINE-EPI 0.5%-1:200000 MPF 30 ML VIAL. INJ ONE; -DOCU-153 PO; +HYDROmorphone 2 MG/ML VIAL IV PRN; +IV RINGERS,LACTATED 1000ML 1,000 ML IV SCH; +LIDOCAINE 1% PF 2 ML VIAL. ID PRN; +MORPHINE SULFATE 2 MG/ML VIAL. IV PRN; +ONDANSETRON PF 4 MG/2 ML VIAL. IV PRN; -OXYC-325 PO; +PROCHLORPERAZINE 10 MG/2 ML VIAL. IV PRN; +fentaNYL PF VIAL 100 MCG/2 ML VIAL IV PRN
[2019-07-21] MEDS ORDERED: PHENYLEPHRINE 10 MG/ML VIAL. ONE (07:06)
[2019-07-21] MEDS ORDERED: PROPOFOL 20 ML IV ONE (07:06)
[2019-07-21] MEDS ORDERED: LIDOCAINE 2% PF 5 ML VIAL. ONE (07:06)
[2019-07-21] MEDS ORDERED: ONDANSETRON PF 4 MG/2 ML VIAL. ONE (07:06)
[2019-07-21] MEDS ORDERED: PROPOFOL 50 ML IV ONE (07:06)
[2019-07-21] MEDS ORDERED: DEXAMETHASONE SOD PHOS 20 MG/5 ML VIAL. ONE (07:06)
[2019-07-21] MEDS ORDERED: REMIFENTANIL 2 MG VIAL. IV ONE (07:06)
[2019-07-21] MEDS ORDERED: ROCURONIUM 50 MG/5 ML VIAL. ONE (07:07)
[2019-07-21] MEDS ORDERED: GELATIN SPONGE SIZE 100. ONE (07:29)
[2019-07-21] MEDS ORDERED: KETOROLAC 60 MG/2 ML VIAL. ONE (07:29)
[2019-07-21] MEDS ORDERED: THROMBIN TOPICAL 20,000 UNIT SPRAY.SYRN KIT TP ONE (07:30)
[2019-07-21] MEDS ORDERED: INSULIN LISPRO 100 UNIT/ML 3ML VIAL for OP,RR ONLY. SQ PRN (07:30)
[2019-07-21] MEDS ORDERED: OXYC-325 PO (07:45)
[2019-07-21] MEDS ORDERED: BACITRACIN 50,000 UNIT in IV NORMAL SALINE 1000ML BAG 1,000 ML IRR ONE (08:00)
[2019-07-21] MEDS ORDERED: BUPIVACAINE-EPI 0.5%-1:200000 MPF 30 ML VIAL. INJ ONE (08:00)
[2019-07-21] MEDS ORDERED: DESFLURANE > 120 MINUTES IH ONE (09:30)
[2019-07-21] MEDS ORDERED: MINERAL OIL/PETROLATUM,WHITE OPHTH OINT 3.5GM TUBE. ONE (09:31)
[2019-07-21] MEDS ORDERED: PROPOFOL 100 ML IV ONE (10:07)
[2019-07-21] MEDS ORDERED: fentaNYL PF VIAL 100 MCG/2 ML VIAL ONE (12:03)
[2019-07-21] MEDS ORDERED: NITROGLYCERIN SUBLINGUAL 0.4 MG BOTTLE OF 25. SL PRN (12:15)
--- NOTE | 2019-07-21 12:20 | OP ---
DATE OF SURGERY: 07/21/2019 PREOPERATIVE DIAGNOSES: Lateral recess stenosis and lumbar radiculopathy, L4-L5, right and L5-S1 bilateral. POSTOPERATIVE DIAGNOSES: Lateral recess stenosis and lumbar radiculopathy, L4-L5, right and L5-S1 bilateral. OPERATIONS PERFORMED: Hemilaminotomy and microdecompression at L4-L5 right and L5-S1 bilaterally. The operation was done with EMG monitoring, SSEP monitoring, fluoroscopy, and microscopic dissection. SURGEON: Pola Lizama M.D. FIRE TRUCK DRIVER: MELISA Kraft OPERATIVE INDICATIONS: The patient is a pleasant 59-year-old, who developed intractable back and right greater than left leg pain. On imaging studies, he had above-mentioned findings and I recommended lumbar microsurgical decompression. I spoke with her about the surgery, the risks, technique, and expected postoperative course and he understood and wished to go ahead. DESCRIPTION OF PROCEDURE: Following general endotracheal anesthesia, the patient was positioned prone on the Song frame. His lumbar region was prepped and draped in the standard fashion. JOHN hose and AV impulse boots were applied for DVT prophylaxis. The microscope was draped. Fluoroscopy was draped and brought into field. Monitoring was established. Ancef 2 grams was given less than 1 hour prior to initiation of surgery. Using fluoroscopic guidance, incision was made extending from L4 through S1. I dissected down through skin and subcutaneous tissue, reflected the paraspinal muscles on the right, placed a [place] microdisk retractor and brought in the microscope beginning at L4-L5. I burred down a generous hemilaminotomy. I trimmed away thickened ligamentum flavum and performed a partial foraminotomy and fully decompressed the region. The disc was firm. No discectomy was warranted. We went down to L5-S1 on the right and performed the identical operation. There was considerable hypertrophic bone, but as I worked, I was able to gently decompress the entire region. I then went to the left side and created an exposure at L5-S1 and performed the identical operation at that level. At each level, I worked diligently to obtain excellent hemostasis. I irrigated copiously and I did use bone wax as well as bipolar cautery where necessary. Following this, then I explored carefully and assured myself the roots were well decompressed. At every level, the disc was firm and no discectomy was warranted. I removed the retractor, obtained hemostasis in the muscle and I closed the wound in layers with absorbable suture. The skin was closed with 4-0 subcuticular stitch. I felt the surgery went very well. POLA LIZAMA MD DR: FRANKO/ledy JOB#: [id number] / [id number] DARRYL
[2019-07-21] MEDS ORDERED: oxyCODONE/APAP 5/325 1 TAB TABLET PO PRN ×2 (12:30)
[2019-07-21] MEDS ORDERED: ACETAMINOPHEN 325 MG TABLET. PO PRN (12:30)
[2019-07-21] MEDS ORDERED: MAGNESIUM HYDROXIDE 2,400 MG/30 ML ORAL.SUSP. PO PRN (12:30)
[2019-07-21] MEDS ORDERED: NALOXONE 0.4 MG/ML VIAL. IV PRN (12:30)
[2019-07-21] MEDS ORDERED: ONDANSETRON PF 4 MG/2 ML VIAL. IVP PRN (12:30)
[2019-07-21] MEDS ORDERED: MAG HYDROX/ALUMINUM HYD/SIMETH 30 ML ORAL.SUSP PO PRN (12:30)
[2019-07-21] MEDS ORDERED: diphenhydrAMINE HCL 25 MG CAPSULE PO PRN (12:30)
[2019-07-21] MEDS ORDERED: fentaNYL PF VIAL 100 MCG/2 ML VIAL IVP PRN (12:30)
[2019-07-21] MEDS ORDERED: CALCIUM CARBONATE 500 MG TAB.CHEW PO PRN (12:30)
[2019-07-21] MEDS ORDERED: METHOCARBAMOL 750 MG TABLET PO PRN (12:30)
[2019-07-21] MEDS ORDERED: 0.9 % SODIUM CHLORIDE 10 ML DISP.SYRIN. IV PRN (12:30)
[2019-07-21] MEDS: fentaNYL PF VIAL 100 MCG/2 ML VIAL IV PRN ×2 (12:34→13:15)
[2019-07-21 13:30] VITALS: BP 135/85
[2019-07-21 14:00] VITALS: BP 131/71
[2019-07-21] MEDS: POTASSIUM CL 20MEQ D5-0.45NACL 1,000 ML IV SCH ×3 (14:52→22:31)
[2019-07-21 15:00] VITALS: BP 134/92
[2019-07-21] MEDS ORDERED: CYCLOBENZAPRINE 10 MG TABLET. PO PRN (15:15)
[2019-07-21 19:00] VITALS: BP 146/73
[2019-07-21] MEDS ORDERED: ATORVASTATIN CALCIUM 40 MG TABLET. PO SCH (21:00)
[2019-07-21] MEDS: DOCUSATE SODIUM 100 MG CAPSULE. PO SCH (22:29)
[2019-07-21 23:00] VITALS: BP 124/76
[2019-07-22 03:00] VITALS: BP 132/78
[2019-07-22 07:00] VITALS: BP 137/82
[2019-07-22] MEDS: DOCUSATE SODIUM 100 MG CAPSULE. PO SCH (08:08)
[2019-07-22] MEDS ORDERED: METOPROLOL TART IMMED RELEASE 25 MG TABLET. PO SCH (09:00)
[2019-07-22] MEDS ORDERED: LISINOPRIL 20 MG TABLET PO SCH (09:00)
[2019-07-22] MEDS ORDERED: glipiZIDE 5 MG TABLET PO SCH (09:00)
[2019-07-22] MEDS ORDERED: ASPIRIN ENTERIC COATED 81 MG TABLET.DR. PO SCH (09:00)
[2019-07-22 11:00] VITALS: BP 131/80
[2019-07-22] MEDS ORDERED: DOCU-153 PO (11:21)
--- NOTE | 2019-07-22 11:23 | DISCH ---
DISCHARGE INSTRUCTIONS Condition on Discharge Condition on Discharge: Stable Activity After Discharge Activity Instructions for Disc: Activity as tolerated, Avoid exertion Bathing Instructions: Shower-keep dressing dry Lifting Instructions after Dis: No heavy lifting, No pulling or pushing, Do not lift >10 pounds Exercise Instruction after Dis: Walk 10 min, 3 x per day, Progress as tolerated Diet after Discharge Additional Diet Restrictions: resume home diet Wound Incision Care Wound/Incision Care: Ice to area for comfort Other wound/incision instructi: may remove dressing in 48 hours if dry then may shower, no soaking Contacting the after DC Call your doctor for: Concerns you may have Follow-Up Follow up with: Dr. Lizama's nurse in 2 weeks [phone] KAYLA LIZAMA MD Jul 22, 2019 11:23
--- NOTE | 2019-07-22 11:33 | DS ---
DATE OF DISCHARGE: 07/22/2019 DISCHARGE DIAGNOSES: Lateral recess stenosis and lumbar radiculopathy, L4-L5 right and L5-S1 bilateral. OPERATIONS PERFORMED: Hemilaminotomy and microdecompression at L4-L5 right and L5-S1 bilateral. OPERATIVE INDICATIONS: The patient is a pleasant 59-year-old, who developed intractable back and right greater than left leg pain. On imaging studies, he had the above-mentioned findings and I recommended lumbar microsurgical decompression. I spoke with him about the surgery, the risks, the technique as well as the expected postoperative course. He understood and wished to go ahead. HOSPITAL COURSE: He was admitted to the floor postoperatively. He is doing well. He is up ambulating in the room and in the halls. He notes resolution of his leg pain. He has minimal pain in his incision on the lower back. His pain is well controlled and he is in good condition to discharge home. Physical therapy was initiated and instruction was given to him regarding his activities. DISCHARGE MEDICATIONS: He will resume his medications per the MRAD. DISCHARGE INSTRUCTIONS: He was instructed regarding incision care, activity restrictions, and expectations for the next several weeks. He will follow up in our office in 2 weeks. He understands to call with any questions or concerns. KAYLA LIZAMA MD DR: WILLAM/ledy JOB#: [id number] / [id number]
--- NOTE | 2019-07-22 12:22 | NUR ---
Discharge instructions, medications and prescriptions reviewed with patient and . They verb. understanding all instructions and deny questions. Patient ready for discharge.
--- NOTE | 2019-07-22 12:29 | NUR ---
Patient discharge to home with with all belongings, instructions and prescriptions.
--- NOTE | 2019-07-22 15:30 | NUR ---
Late note Pt discharged home with self care. RN advised no SW needs.
--- NOTE | 2019-07-23 18:06 | PATHOLOGY ---
[facility] Accession Number: [id number] . 01 Material submitted: . vertebral column - LUMBAR DECOMPRESSION . 01 Clinical history: . Lumbar stenosis with neurogenic claudication and radiculopathy, stenosis . 02 Diagnosis: Segments of fibrocartilaginous, fibroadipose, and skeletal muscle tissue and bone, lumbar decompression: - Degenerative changes of fibrocartilaginous tissue. . (JPM:magalis; 07/23/2019) QMS 07/23/2019 1528 Local . 02 Comment: There is no evidence of an acute inflammatory process or malignancy. . 02 Electronically signed: . Roque Epps MD, Pathologist NPI- [id number] . 01 Gross description: . The specimen is received in formalin, labeled "Elliot Carbajal, lumbar decompression" and consists of multiple segments of fibrous to soft yellow-conti to pink tissue as well as bone/cartilage measuring 4.4 x 4.4 x 1.0 cm in aggregate. A labor service representative portion is submitted in A1 following decalcification. (SDY; 07/22/2019) SYU/SYU 07/22/2019 1546 Local . 02 Pathologist provided ICD-10: M51.36 . 02 CPT . 519181, [id number] Specimen Comment: A courtesy copy of this report has been sent to [phone], [phone] Specimen Comment: [id number] Specimen Comment: Report sent to and Performed at: 01 [facility] [address], [place] [id number] MD Kane Tompkins MD Phone: [phone] Performed at: 02 [facility] [address], [place] [id number] MD Roque Epps MD Phone: [phone]
== END 2019-07-22 12:32 | disposition home or self-care (01) ==
LOC: SURG 07:04 → 4 NORTH 12:32
PROVIDERS: ADMIT Neurological Surgery; ATTEND Neurological Surgery
DX: M54.16 Radiculopathy, lumbar region (principal); M48.07 Spinal stenosis, lumbosacral region; I10 Essential (primary) hypertension; I25.2 Old myocardial infarction; F17.200 Nicotine dependence, unspecified, uncomplicated; Z86.73 Personal history of transient ischemic attack (TIA), and cerebral infarction without residual deficits; Z96.659 Presence of unspecified artificial knee joint; Z79.82 Long term (current) use of aspirin
CPT/HCPCS: 63030; 63035; 76000; 82962; 88304; 88311; 97110; 97116; 97162; 97530; A7015; G0378; G0379; J0696; J0780; J1100; J1885; J2001; J2704; J3010; J3490; J7030; J2405